=== PATIENT | female | born 1940 | race Caucasian/White ===

== ENCOUNTER → 2020-07-18 | Outpatient (CLI) | payer OTHER ==
[~2020-07-18] MED LIST: DULOXETINE HCL60 MG PO; LISINOPRIL20 MG PO
== END | disposition home or self-care (01) ==
LOC: COVID19 10:17
PROVIDERS: ATTEND Ophthalmology
DX: Z01.812 Encounter for preprocedural laboratory examination (principal); Z20.822 Contact with and (suspected) exposure to COVID-19

== ENCOUNTER → 2020-07-23 | Day surgery (SDC) | payer OTHER ==
[~2020-07-23] VITALS: Ht 163.8 cm; Wt 86.2 kg
[2020-07-23 11:20] VITALS: BP 170/69
[2020-07-23 12:00] VITALS: BP 156/71
[2020-07-23 12:15] VITALS: BP 160/69
[2020-07-23 12:25] VITALS: BP 163/80
== END ==
LOC: SDC 07-18 14:45
PROVIDERS: ATTEND Ophthalmology
DX: H25.812 Combined forms of age-related cataract, left eye (principal); I10 Essential (primary) hypertension; Z96.641 Presence of right artificial hip joint; Z98.890 Other specified postprocedural states; Z79.899 Other long term (current) drug therapy

== ENCOUNTER → 2020-08-15 | Outpatient (CLI) | payer OTHER | END | disposition home or self-care (01) | LOC: COVID19 09:53 | PROVIDERS: ATTEND Internal Medicine | DX: Z01.812 Encounter for preprocedural laboratory examination (principal); Z20.822 Contact with and (suspected) exposure to COVID-19 ==

== ENCOUNTER → 2020-08-20 | Day surgery (SDC) | payer OTHER ==
[~2020-08-20] VITALS: Ht 163.8 cm; Wt 86.2 kg
[2020-08-20 10:23] VITALS: BP 122/48
[2020-08-20 11:21] VITALS: BP 168/79
[2020-08-20 11:36] VITALS: BP 155/88
[2020-08-20 11:51] VITALS: BP 153/69
== END | disposition home or self-care (01) ==
LOC: SDC 08-15 10:15
PROVIDERS: ATTEND Ophthalmology
DX: H25.811 Combined forms of age-related cataract, right eye (principal); I10 Essential (primary) hypertension; Z96.641 Presence of right artificial hip joint; Z79.899 Other long term (current) drug therapy

== ENCOUNTER 2021-08-14 13:40 | Emergency (ER) | payer OTHER ==
[2021-08-14] MEDS ORDERED: PREDNISONE50 MG PO (15:34)
== END 2021-08-14 15:55 | disposition home or self-care (01) ==
LOC: ED 13:40
DX: M54.32 Sciatica, left side (principal); Z79.899 Other long term (current) drug therapy; Z90.89 Acquired absence of other organs; Z90.49 Acquired absence of other specified parts of digestive tract; Z98.890 Other specified postprocedural states